=== PATIENT | female | born 1930 | race Caucasian/White ===

== ENCOUNTER 2016-06-19 14:55 | Observation (INO) | payer MEDICARE, OTHER ==
[~2016-06-19 14:55] MED LIST: ASPIR 8181 MG PO; CALCIUM; EVISTA60 MG PO; GENTEAL10 ML OP; LEVOTHYROXINE50 MCG PO; LEVSIN0.125 MG PO; LEXAPRO10 M1 PO; OXCARBAZEPINE; PLAVIX75 MG PO; RESTORIL15 MG PO; TIMOLOL MALEATE OP; TRILEPTAL150 MG PO; TYLENOL650 MG PO; [UNRECOGNIZED DRUG - OTHER]
[2016-06-19] MEDS ORDERED: [UNRECOGNIZED DRUG - OTHER] PO (15:07)
[2016-06-19] MEDS ORDERED: CALCIUM CARBON600 M2 PO (15:07)
[2016-06-19] MEDS ORDERED: LEXAPRO10 M2 PO (15:07)
[2016-06-19] MEDS ORDERED: DICYCLOMINE HCL20 M1 PO (15:07)
[2016-06-19] MEDS ORDERED: ASPIRIN81 M1 PO (15:07)
[2016-06-19] MEDS ORDERED: LASIX20 M1 PO (15:08)
[2016-06-19] MEDS ORDERED: PRINIVIL5 M1 PO (15:08)
[2016-06-19] MEDS ORDERED: [UNRECOGNIZED DRUG - OTHER] PO (15:08)
[2016-06-19] MEDS ORDERED: XALATAN2.5 M1 OP (15:08)
[2016-06-19] MEDS ORDERED: SYNTHROID50 MC1 PO (15:08)
[2016-06-19] MEDS ORDERED: MELATONIN5 M5 PO (15:09)
[2016-06-19] MEDS ORDERED: NAMENDA10 M1 PO (15:09)
[2016-06-19] MEDS ORDERED: PROMETHAZINE HC25 M3 PO (15:09)
[2016-06-19] MEDS ORDERED: MAPAP325 M2 PO (15:09)
[2016-06-19] MEDS ORDERED: [UNRECOGNIZED DRUG - OTHER] OP (15:10)
[2016-06-19] MEDS ORDERED: EVISTA60 M1 PO (15:10)
[2016-06-19] MEDS ORDERED: REFRESH TEARS15 M1 OP (15:10)
[2016-06-19] MEDS ORDERED: VITAMIN D-32000 UNI4 PO (15:11)
[2016-06-19] MEDS ORDERED: TIMOPTIC10 ML OP (15:11)
[2016-06-19] MEDS ORDERED: TYLENOL325 M2 PO (15:12)
[2016-06-19] MEDS ORDERED: ANTI-DIARRHEAL2 M2 PO (15:12)
[2016-06-19] MEDS ORDERED: EAR DROPS15 M2 OT (15:13)
[2016-06-19] MEDS ORDERED: NITROGLYCERIN0.4 M2 SL (15:14)
[2016-06-19] MEDS ORDERED: GLUCOSAMINE TP (15:15)
[2016-06-19 16:13] LABS: BASO % 0.7 % (0-2); EOS % 4.9 % (0-7); EOSINOPHIL ABSOLUTE COUNT 0.3 tho/cmm (0.0-0.7); HCT-HEMATOCRIT 36.1 % (34.0-49.0); HGB-HEMOGLOBIN 11.4 gm/dl (12.0-15.5); IMMATURE GRANULOCYTES ABSOLUTE 0.01 tho/cmm (0-0.03); IMMATURE GRANULOCYTES PERCENT 0.2 % (0-0.3); LYMPH % 38.7 % (20-45); LYMPH ABSOLUTE COUNT 2.1 tho/cmm (0.8-4.5); MCHC MEAN CORPUSCULAR HGB CONC 31.6 % (32.0-36.0); MEAN PLATELET VOLUME 11.1 cmc (9.4-12.4); MONO % 11.8 % (0-12); MONOCYTE ABSOLUTE COUNT 0.7 tho/cmm (0.0-1.2); NEUTROPHIL ABSOLUTE COUNT 2.4 tho/cmm (1.6-8.0); NEUTROPHIL-AUTOMATED 2.4 tho/cmm (1.6-8.0); NEUTROPHILS % 43.7 % (40-80); PLATELET COUNT 205 tho/cmm (150-450); RED CELL DISTRIBUTION WIDTH 13.7 % (12.4-16.4); WHITE BLOOD COUNT 5.5 tho/cmm (4.0-10.0)
[2016-06-19 16:32] LABS: ALB/GLOB RATIO 0.9 (0.8-2.0); ALBUMIN 3.3 g/dl (3.5-5.0); ALKALINE PHOSPHATASE 56 U/L (33-138); ALT/SGPT 17 U/L (12-78); BILIRUBIN,TOTAL 0.3 mg/dl (0-1.5); BLOOD UREA NITROGEN 18 mg/dl (6-24); CARBON DIOXIDE-VENOUS 34 mmol/L (22-32); CHLORIDE 103 mmol/l (96-110); CREATININE 0.83 mg/dl (0.50-1.10); GLUCOSE 102 mg/dL (70-110); SODIUM 143 mmol/L (135-145); eGFR VALUE FOR BLACK 73 mL/Min
[2016-06-19 16:33] LABS: ANION GAP 10 mmol/L (0-20); AST/SGOT 27 U/L (10-40)
[2016-06-21 14:43] LABS: BASO % 0.4 % (0-2); EOS % 3.7 % (0-7); EOSINOPHIL ABSOLUTE COUNT 0.3 tho/cmm (0.0-0.7); HGB-HEMOGLOBIN 11.8 gm/dl (12.0-15.5); IMMATURE GRANULOCYTES ABSOLUTE 0.01 tho/cmm (0-0.03); IMMATURE GRANULOCYTES PERCENT 0.1 % (0-0.3); LYMPH % 28.9 % (20-45); MCHC MEAN CORPUSCULAR HGB CONC 31.9 % (32.0-36.0); MCV (MEAN CELL VOLUME) 94.1 fl (82.0-96.0); MEAN PLATELET VOLUME 10.6 cmc (9.4-12.4); MONO % 12.8 % (0-12); MONOCYTE ABSOLUTE COUNT 0.9 tho/cmm (0.0-1.2); NEUTROPHIL ABSOLUTE COUNT 3.6 tho/cmm (1.6-8.0); NEUTROPHIL-AUTOMATED 3.6 tho/cmm (1.6-8.0); NEUTROPHILS % 54.1 % (40-80); PLATELET COUNT 210 tho/cmm (150-450); RED BLOOD COUNT 3.93 mil/cmm (4.00-5.20); RED CELL DISTRIBUTION WIDTH 13.3 % (12.4-16.4); WHITE BLOOD COUNT 6.7 tho/cmm (4.0-10.0)
[2016-06-21 14:57] LABS: ANION GAP 11 mmol/L (0-20); BLOOD UREA NITROGEN 15 mg/dl (6-24); CALCIUM 8.8 mg/dl (8.5-10.5); CARBON DIOXIDE-VENOUS 32 mmol/L (22-32); CHLORIDE 102 mmol/l (96-110); CREATININE 0.89 mg/dl (0.50-1.10); GLUCOSE 134 mg/dL (70-110); SODIUM 141 mmol/L (135-145); eGFR VALUE FOR BLACK 67 mL/Min
[2016-06-24] MEDS ORDERED: PROTONIX40 M2 PO (12:56)
== END 2016-06-24 14:06 ==
LOC: EDMED 14:55 → EMR2 17:33 → 5EB 20:15
PROVIDERS: Emergency Medicine; Internal Medicine; ADMIT Internal Medicine
DX: R13.10 Dysphagia, unspecified (principal); J84.9 Interstitial pulmonary disease, unspecified; E03.9 Hypothyroidism, unspecified; I25.10 Atherosclerotic heart disease of native coronary artery without angina pectoris; F03.90 Unspecified dementia, unspecified severity, without behavioral disturbance, psychotic disturbance, mood disturbance, and anxiety; Z66 Do not resuscitate; R53.81 Other malaise; R53.1 Weakness; R53.83 Other fatigue; Z51.5 Encounter for palliative care; Z79.82 Long term (current) use of aspirin; Z79.899 Other long term (current) drug therapy; Z88.1 Allergy status to other antibiotic agents; Z88.8 Allergy status to other drugs, medicaments and biological substances; Z95.5 Presence of coronary angioplasty implant and graft; Z95.0 Presence of cardiac pacemaker; Z98.890 Other specified postprocedural states; Z99.81 Dependence on supplemental oxygen
CPT/HCPCS: G0378; G8978-GO-CJ; G8978-GP-CJ; G8979-GO-CI; G8979-GP-CJ; G8980-GO-CJ; G8980-GP-CJ; G8996-GN-CI; G8996-GN-CJ; G8997-GN-CH; G8997-GN-CI; G8998-GN-CI; G8998-GN-CJ